=== PATIENT | female | born 1960 | race African-American/Black ===

== ENCOUNTER 2019-12-06 20:13 | Emergency (ER) | payer MEDICAID, OTHER ==
[~2019-12-06] VITALS: Ht 157.5 cm; Wt 130.6 kg
[2019-12-06 20:30] VITALS: BP 134/86
--- NOTE | 2019-12-06 20:31 | NUR ---
PT CAME TO ER BED 8 C/O BILATERAL EXTREMITY SWELLING. AAOX4. NO SOB. BREATHING EVENLY AND UNLABORED ON ROOM AIR. CONNECTED TO MONITOR.
--- NOTE | 2019-12-06 21:53 | NUR ---
CALLED [facility] FOR TRANSPORTATION. ETA [phone]. TRIP #[id number]
--- NOTE | 2019-12-06 22:08 | NUR ---
Report given to Tank KERNS at [place] for FRANCO.
--- NOTE | 2019-12-06 23:03 | NUR ---
[facility] ETA 15MIN
== END 2019-12-07 00:13 | disposition home or self-care (01) ==
LOC: ER 20:14
DX: M17.11 Unilateral primary osteoarthritis, right knee (principal); I10 Essential (primary) hypertension; Z88.5 Allergy status to narcotic agent
CPT/HCPCS: 73564-TC; 93971-TC

== ENCOUNTER 2020-05-16 05:56 | Emergency (ER) | payer MEDICAID ==
[~2020-05-16] VITALS: Ht 157.5 cm; Wt 108.0 kg
--- NOTE | 2020-05-16 05:57 | NUR ---
SEIZURE PRECAUTIONS IMPLEMENTED FOR SAFETY
--- NOTE | 2020-05-16 06:00 | NUR ---
PT SALENA 60 FROM [facility] FOR A WITNESSED SEIZURE WHICH LASTED FOR 2 MINUTES. NO ORAL TRAUMA.PT IS ON THE POST ICTAL PHASE BUT PT IS ABLE TO ANSWER QUESTIONS. PT AAOX4, RESPIRATIONS EVEN AND UNLABORED ON RA W/ NAD NOTED. PT CONNECTED TO THE FOIL CUTTER AND POX
--- NOTE | 2020-05-16 06:05 | NUR ---
BLOOD COLLECTED AND SENT TO LAB
[2020-05-16] MEDS ORDERED: LEVETIRACETAM (250 MG) 250 MG TABLET PO ONE ×2 (06:17→06:30)
--- NOTE | 2020-05-16 06:20 | NUR ---
PT TAKEN TO CT
--- NOTE | 2020-05-16 06:35 | NUR ---
PT BACK FROM CT
[2020-05-16 06:41] LABS: CALCIUM, SERUM 8.3 mg/dL (8.5-10.1); CREATININE 1.2 mg/dL (0.6-1.3); POTASSIUM 3.4 mmol/L (3.5-5.1)
[2020-05-16 06:56] LABS: BASOPHILS % (AUTO) 0.4 % (0.0-2.0); EOSINOPHILS % (AUTO) 1.8 % (0.0-6.0); HEMATOCRIT 42 % (33-45); HEMOGLOBIN 13.8 g/dL (11.5-14.8); LYMPHOCYTES # (AUTO) 2.5 /CMM (0.8-4.8); LYMPHOCYTES % (AUTO) 26.1 % (20.0-44.0); MEAN CORPUSCULAR HGB CONC 33 g/dl (31.0-36.0); MEAN CORPUSCULAR VOLUME 97 fL (82-100); MONOCYTES # (AUTO) 0.6 /CMM (0.1-1.30); MONOCYTES % (AUTO) 6.2 % (2.0-12.0); NEUTROPHILS # (AUTO) 6.2 /CMM (1.8-8.9); NEUTROPHILS % (AUTO) 65.5 % (43.0-81.0); PLATELET COUNT (AUTO) 186 /CMM (150-450); RED BLOOD CELL COUNT(AUTO) 4.31 MIL/uL (4.0-5.2); WHITE BLOOD COUNT (AUTO) 9.4 K/uL (4.3-11.0)
--- NOTE | 2020-05-16 07:30 | NUR ---
PATIENT A/OX2, ASKING "WHAT HAPPENED", REORIENTED, SHE HAD EPISODE OF SEIZURE
[2020-05-16] MEDS ORDERED: METOPROLOL TARTRATE INJ 5 MG/5 ML AMPUL ONE (07:54)
[2020-05-16] MEDS ORDERED: METOPROLOL TARTRATE INJ 5 MG/5 ML AMPUL IV ONE (08:00)
[2020-05-16] MEDS ORDERED: hydrALAZINE HCL IV 20 MG VIAL IV ONE (09:00)
--- NOTE | 2020-05-16 09:05 | NUR ---
WITH EPISODE OF HIGH BP, METOPROLOL GIVEN PER MD. RECHECKED SBP 150'S.
--- NOTE | 2020-05-16 09:06 | NUR ---
CALLED [facility] ETA 0930 MINS PER DIEGO.
[2020-05-16] MEDS ORDERED: hydrALAZINE HCL IV 20 MG VIAL ONE (09:08)
--- NOTE | 2020-05-16 09:37 | NUR ---
Patient discharged to home in stable condition. Written and verbal after care instructions given. Patient verbalizes understanding of instruction.IV removed. Catheter intact and site benign. Pressure and 4x4 applied to site. No bleeding noted. Acompanied by 3 EMT of private ambulance. A/Ox4. Addendum: 05/16/20 at 0940 by HUMERA DC TO SNF
[2020-05-16 09:38] VITALS: BP 151/89
== END 2020-05-16 09:39 ==
LOC: ER 05:57
DX: G40.909 Epilepsy, unspecified, not intractable, without status epilepticus (principal); I10 Essential (primary) hypertension; J45.909 Unspecified asthma, uncomplicated; F32.9 Major depressive disorder, single episode, unspecified; E03.9 Hypothyroidism, unspecified; Z88.5 Allergy status to narcotic agent
CPT/HCPCS: 36415; 70450; 80048; 85025; 96374; 96375; 99285; J0360; J3490

== ENCOUNTER 2020-05-23 21:08 | Emergency (ER) | payer MEDICAID ==
[~2020-05-23] VITALS: Ht 157.5 cm; Wt 108.9 kg
--- NOTE | 2020-05-23 21:30 | NUR ---
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 PER EMS LAST SZ WAS ABOUT 2029. PT W/ HX OF SEUIZURE AND RECEIVES KEPPRA. PT CURRENTLY ALERT AND AWAKE. RESPONSIVE TO QUESTIONS. REPORTED SOME WEAKNESS DUE TO SEIZURE EPISODE. PT WAS PLACED ON A MONITOR .
[2020-05-23 22:08] LABS: BASOPHILS # (AUTO) 0.2 /CMM (0.0-0.2); BASOPHILS % (AUTO) 1.4 % (0.0-2.0); EOSINOPHILS % (AUTO) 2.6 % (0.0-6.0); HEMATOCRIT 37 % (33-45); HEMOGLOBIN 12.4 g/dL (11.5-14.8); LYMPHOCYTES # (AUTO) 2.9 /CMM (0.8-4.8); MEAN CORPUSCULAR HGB CONC 33 g/dl (31.0-36.0); MEAN CORPUSCULAR VOLUME 98 fL (82-100); MONOCYTES # (AUTO) 0.8 /CMM (0.1-1.30); MONOCYTES % (AUTO) 7.7 % (2.0-12.0); NEUTROPHILS # (AUTO) 6.6 /CMM (1.8-8.9); NEUTROPHILS % (AUTO) 61.3 % (43.0-81.0); PLATELET COUNT (AUTO) 174 /CMM (150-450); RED BLOOD CELL COUNT(AUTO) 3.83 MIL/uL (4.0-5.2); WHITE BLOOD COUNT (AUTO) 10.8 K/uL (4.3-11.0)
[2020-05-23 22:15] LABS: CALCIUM, SERUM 8.2 mg/dL (8.5-10.1); CREATININE 1.3 mg/dL (0.6-1.3); POTASSIUM 3.4 mmol/L (3.5-5.1)
[2020-05-23] MEDS ORDERED: LEVETIRACETAM (500MG) 1,000 MG in IV NS 0.9% 100 ML IV ONE (23:30)
[2020-05-23] MEDS ORDERED: LEVETIRACETAM (500MG) 500 MG/5 ML VIAL IV ONE (23:52)
--- NOTE | 2020-05-24 00:06 | NUR ---
[facility] CALLED FOR TRANSPORT. ETA [phone]
[2020-05-24] MEDS ORDERED: LEVETIRACETAM (250 MG) 250 MG TABLET PO ONE ×2 (00:10→00:30)
--- NOTE | 2020-05-24 00:21 | NUR ---
SWALLOW EVAL DONE BY RN AT THE BED SIDE AND PT WAS MEDICATED . NO S/S OF CHOKING NOTED.
--- NOTE | 2020-05-24 03:27 | NUR ---
REPORT GIVEN TO [facility]. IV removed. Catheter intact and site benign. Pressure and 4x4 applied to site. No bleeding noted.
--- NOTE | 2020-05-24 03:32 | NUR ---
PT MEDICALLY STABLE FOR D/C. IV removed. Catheter intact and site benign. Pressure and 4x4 applied to site. No bleeding noted.Patient discharged to home in stable condition. Rx and Written and verbal after care instructions given. Patient verbalizes understanding of instruction. PT WAS PICKED UP [facility]IA [facility] IN STABLE CONDITION . ALL BELONGINGS PICKED UP BY THE AMBULANCE
[2020-05-24 03:47] VITALS: BP 136/99
== END 2020-05-24 03:32 | disposition home or self-care (01) ==
LOC: ER 21:08
DX: G40.909 Epilepsy, unspecified, not intractable, without status epilepticus (principal); I10 Essential (primary) hypertension; E78.5 Hyperlipidemia, unspecified; J45.909 Unspecified asthma, uncomplicated; E03.9 Hypothyroidism, unspecified; Z88.5 Allergy status to narcotic agent
CPT/HCPCS: 36415; 71045-TC; 80048-TC; 80177; 83880; 85025-TC; J1953; J7030

== ENCOUNTER 2020-07-07 23:34 | Emergency (ER) | payer MEDICAID ==
[~2020-07-07] VITALS: Ht 157.5 cm; Wt 108.9 kg
--- NOTE | 2020-07-07 23:40 | NUR ---
PT BIBRA60 FROM [facility]. PER REPORT PT FOUND BY ROOMATE "SHAKING/SEIZURE-LIKE ACTIVITY" @10PM. PT STATES SHE HAS A HX OF SEIZURE. PT AAOX4,RESPIRATIONS EVEN AND UNLABORED ON RA W/ NAD NOTED. PT CONNECTED TO THE RECEIVING ASSOCIATE AND POX. SEIZURE PRECAUTIONS IMPLEMNTED
--- NOTE | 2020-07-07 23:44 | NUR ---
EKG AT BEDSIDE
[2020-07-08 00:02] LABS: BASOPHILS % (AUTO) 0.2 % (0.0-2.0); EOSINOPHILS % (AUTO) 1.1 % (0.0-6.0); HEMATOCRIT 39 % (33-45); LYMPHOCYTES # (AUTO) 2.3 /CMM (0.8-4.8); LYMPHOCYTES % (AUTO) 22.3 % (20.0-44.0); MEAN CORPUSCULAR HGB CONC 33 g/dl (31.0-36.0); MEAN CORPUSCULAR VOLUME 97 fL (82-100); MONOCYTES # (AUTO) 0.7 /CMM (0.1-1.30); MONOCYTES % (AUTO) 7.1 % (2.0-12.0); NEUTROPHILS # (AUTO) 7.2 /CMM (1.8-8.9); NEUTROPHILS % (AUTO) 69.3 % (43.0-81.0); PLATELET COUNT (AUTO) 223 /CMM (150-450); RED BLOOD CELL COUNT(AUTO) 4.04 MIL/uL (4.0-5.2); WHITE BLOOD COUNT (AUTO) 10.4 K/uL (4.3-11.0)
--- NOTE | 2020-07-08 00:10 | NUR ---
NOTED ELEVATED BP 188/97. MADE AWARE
[2020-07-08 00:12] LABS: CALCIUM, SERUM 8.3 mg/dL (8.5-10.1); CARBON DIOXIDE 28 mmol/L (21-32); CHLORIDE 105 mmol/L (98-107); CREATININE 1.2 mg/dL (0.6-1.3); GLUCOSE 87 mg/dL (74-106); POTASSIUM 3.5 mmol/L (3.5-5.1); SODIUM SERUM 140 mmol/L (136-145); UREA NITROGEN, BLOOD 15 mg/dL (7-18)
[2020-07-08 00:17] LABS: ALANINE AMINOTRANSFERASE 27 U/L (12-78); ALBUMIN 3.3 g/dL (3.4-5.0); ALKALINE PHOSPHATASE 108 U/L (46-116); ASPARTATE AMINOTRANSFERASE 24 U/L (15-37); BILIRUBIN,DIRECT 0.1 mg/dL (0.0-0.2); BILIRUBIN,TOTAL 0.3 mg/dL (0.2-1.0)
[2020-07-08 00:19] LABS: ALCOHOL, BLOOD < 3 mg/dL (0-0)
--- NOTE | 2020-07-08 00:21 | NUR ---
URINE COLLECTED AND SENT TO LAB
[2020-07-08] MEDS ORDERED: CLONIDINE HCL 0.1 MG TABLET ONE (00:33)
[2020-07-08] MEDS: CLONIDINE HCL 0.1 MG TABLET PO ONE (00:39)
--- NOTE | 2020-07-08 00:40 | NUR ---
PT GIVEN ORANGE JUICE AND FOOD.
--- NOTE | 2020-07-08 01:27 | NUR ---
ETA 0700 [facility]
[2020-07-08 01:32] LABS: APPEARANCE,URINE CLEAR (CLEAR); BILIRUBIN,URINE NEGATIVE (NEGATIVE); BLOOD, URINE NEGATIVE Ery/uL (NEGATIVE); COLOR,URINE YELLOW (YELLOW); KETONES,URINE NEGATIVE (NEGATIVE); LEUKOCYTE ESTERASE ,URINE NEGATIVE (NEGATIVE); NITRITE, URINE NEGATIVE (NEGATIVE); PROTEIN,URINE NEGATIVE (NEGATIVE); UGLUCOSE NEGATIVE (NEGATIVE); UROBILINOGEN,URINE 0.2 EU/dL (0.2)
--- NOTE | 2020-07-08 04:28 | NUR ---
PT RESTING COMFORTABLY IN BED. VSS. NO ACUTE DISTRESS NOTED. WILL CONTINUE TO MONITOR ACCORDINGLY
--- NOTE | 2020-07-08 06:31 | NUR ---
REPORT GIVEN TO GRZEGORZ FROM [facility]
[2020-07-08 07:24] VITALS: BP 115/68
--- NOTE | 2020-07-08 07:24 | NUR ---
REPORT GIVEN TO EMS, YOGESH. PT STABLE TO BE DC'ED BACK TO THE FACILITY
== END 2020-07-08 07:25 ==
LOC: ER 23:35
DX: R56.9 Unspecified convulsions (principal); I10 Essential (primary) hypertension; J45.909 Unspecified asthma, uncomplicated; F32.9 Major depressive disorder, single episode, unspecified; E03.9 Hypothyroidism, unspecified; E78.5 Hyperlipidemia, unspecified; Z88.5 Allergy status to narcotic agent
CPT/HCPCS: 36415; 71045-TC; 80048-TC; 80076-TC; 80305; 81000-TC; 82962-TC; 85025-TC; G0480

== ENCOUNTER 2020-08-16 00:21 | Emergency (ER) | payer MEDICAID ==
[~2020-08-16] VITALS: Ht 165.1 cm; Wt 99.8 kg
--- NOTE | 2020-08-16 00:32 | NUR ---
PT [id number] FROM [facility] C/O L LEG PAIN S/P GLF. -TRAUMA NOTED. PT PLACED IN BED 4 ON MONITOR AND PULSE OX. MD AT BEDSIDE FOR EVAL. NO ACUTE DISTRESS NOTED.
--- NOTE | 2020-08-16 00:50 | NUR ---
RADIOLOGY AT BEDSIDE FOR XRAY
[2020-08-16] MEDS ORDERED: KETOROLAC TROMETHAMINE INJ 60 MG/2 ML VIAL IM ONE ×2 (00:58→01:00)
--- NOTE | 2020-08-16 01:36 | NUR ---
REPORT GIVEN TO JOSE GUADALUPE AT [facility]
--- NOTE | 2020-08-16 01:51 | NUR ---
MARISSA TURF FARM WORKER [id number] TRIP [id number] TRIP#
--- NOTE | 2020-08-16 05:00 | NUR ---
Patient is resting comfortably in bed with eyes closed. Easily aroused. Pt denies pain at this time
--- NOTE | 2020-08-16 06:56 | NUR ---
report given to ems for dc
--- NOTE | 2020-08-16 06:57 | NUR ---
Patient discharged to home in stable condition. Written and verbal after care instructions given. Patient verbalizes understanding of instruction.
[2020-08-16 07:07] VITALS: BP 146/88
== END 2020-08-16 07:08 ==
LOC: ER 00:21
DX: S80.12XA Contusion of left lower leg, initial encounter (principal); E66.01 Morbid (severe) obesity due to excess calories; I10 Essential (primary) hypertension; J45.909 Unspecified asthma, uncomplicated; F32.9 Major depressive disorder, single episode, unspecified; E03.9 Hypothyroidism, unspecified; E78.5 Hyperlipidemia, unspecified; Z88.5 Allergy status to narcotic agent; Z68.36 Body mass index [BMI] 36.0-36.9, adult; W01.0XXA Fall on same level from slipping, tripping and stumbling without subsequent striking against object, initial encounter; Y93.01 Activity, walking, marching and hiking; Y92.89 Other specified places as the place of occurrence of the external cause; Y99.8 Other external cause status
CPT/HCPCS: 72170; 73552; 73590; 96372; 99284; J1885

== ENCOUNTER 2020-08-21 05:00 | Emergency (ER) | payer MEDICAID ==
[~2020-08-21] VITALS: Ht 165.1 cm; Wt 133.6 kg
--- NOTE | 2020-08-21 05:10 | NUR ---
PT BIBRA C/O MIDSTERNAL CHEST PAIN W/ UNKNOWN ONSET TIME AND GENERALIZED WEAKNESS. +NAUSEA, PT ABLE TO FOLLOW COMMANDS, AAOX3, VSS, RESPIRATIONS EVEN AND UNLABORED ON RA W/ NAD NOTED. PT CONNECTED TO THE AIRLINE OPERATIONS AGENT AND POX
--- NOTE | 2020-08-21 05:28 | NUR ---
BLOOD COLLECTED AND SENT TO LAB
[2020-08-21] MEDS ORDERED: IV NS 0.9% 1,000 ML BAG IV ONE (05:30)
[2020-08-21 05:31] LABS: BASOPHILS # (AUTO) 0.1 /CMM (0.0-0.2); BASOPHILS % (AUTO) 1.1 % (0.0-2.0); EOSINOPHILS % (AUTO) 3.4 % (0.0-6.0); HEMATOCRIT 37 % (33-45); HEMOGLOBIN 12.4 g/dL (11.5-14.8); LYMPHOCYTES % (AUTO) 30.3 % (20.0-44.0); MEAN CORPUSCULAR HGB CONC 33 g/dl (31.0-36.0); MEAN CORPUSCULAR VOLUME 97 fL (82-100); MONOCYTES # (AUTO) 0.8 /CMM (0.1-1.30); MONOCYTES % (AUTO) 7.9 % (2.0-12.0); NEUTROPHILS # (AUTO) 5.7 /CMM (1.8-8.9); NEUTROPHILS % (AUTO) 57.3 % (43.0-81.0); PLATELET COUNT (AUTO) 155 /CMM (150-450); RED BLOOD CELL COUNT(AUTO) 3.85 MIL/uL (4.0-5.2); WHITE BLOOD COUNT (AUTO) 9.9 K/uL (4.3-11.0)
[2020-08-21 05:40] LABS: CALCIUM, SERUM 8.1 mg/dL (8.5-10.1); CARBON DIOXIDE 31 mmol/L (21-32); CHLORIDE 104 mmol/L (98-107); GLUCOSE 79 mg/dL (74-106); POTASSIUM 3.3 mmol/L (3.5-5.1); SODIUM SERUM 143 mmol/L (136-145); UREA NITROGEN, BLOOD 15 mg/dL (7-18)
[2020-08-21 05:48] LABS: ALANINE AMINOTRANSFERASE 28 U/L (12-78); ALBUMIN 2.8 g/dL (3.4-5.0); ALKALINE PHOSPHATASE 101 U/L (46-116); ASPARTATE AMINOTRANSFERASE 22 U/L (15-37); BILIRUBIN,DIRECT 0.1 mg/dL (0.0-0.2); BILIRUBIN,TOTAL 0.3 mg/dL (0.2-1.0); TOTAL PROTEIN, SERUM 6.9 g/dL (6.4-8.2)
--- NOTE | 2020-08-21 08:14 | NUR ---
CALLED TRANSPORT ETA 0845 [facility].
--- NOTE | 2020-08-21 08:46 | NUR ---
TRIED TO CONTACT [facility], NO ANSWER.
--- NOTE | 2020-08-21 09:00 | NUR ---
IV removed. Catheter intact and site benign. Pressure and 4x4 applied to site. No bleeding noted.
--- NOTE | 2020-08-21 09:06 | NUR ---
Patient discharged RA in stable condition. Written and verbal after care instructions given. Patient verbalizes understanding of instruction. Patient will be brought to [facility] the [place]
[2020-08-21 09:07] VITALS: BP 170/76
== END 2020-08-21 09:08 ==
LOC: ER 05:02
DX: R53.1 Weakness (principal); I10 Essential (primary) hypertension; J45.909 Unspecified asthma, uncomplicated; F32.9 Major depressive disorder, single episode, unspecified; E03.9 Hypothyroidism, unspecified; E78.5 Hyperlipidemia, unspecified; Z88.5 Allergy status to narcotic agent
CPT/HCPCS: 36415; 71045; 80048; 80076; 84484; 85025; 93005; 96360; 99285; J7030

== ENCOUNTER 2020-09-26 10:51 | Emergency (ER) | payer MEDICAID ==
[~2020-09-26] VITALS: Ht 157.5 cm; Wt 90.7 kg
[2020-09-26 13:09] LABS: BILIRUBIN,URINE NEGATIVE (NEGATIVE); BLOOD, URINE NEGATIVE Ery/uL (NEGATIVE); COLOR,URINE YELLOW (YELLOW); LEUKOCYTE ESTERASE ,URINE NEGATIVE (NEGATIVE); NITRITE, URINE NEGATIVE (NEGATIVE); PH,URINE 6.5 (5.0-8.0); PROTEIN,URINE TRACE mg/dl (NEGATIVE); UGLUCOSE NEGATIVE (NEGATIVE); UROBILINOGEN,URINE 0.2 EU/dL (0.2)
[2020-09-26 13:20] LABS: BASOPHILS % (AUTO) 0.3 % (0.0-2.0); EOSINOPHILS % (AUTO) 0.1 % (0.0-6.0); HEMATOCRIT 42 % (33-45); HEMOGLOBIN 13.6 g/dL (11.5-14.8); LYMPHOCYTES # (AUTO) 2.3 /CMM (0.8-4.8); LYMPHOCYTES % (AUTO) 17.9 % (20.0-44.0); MEAN CORPUSCULAR HGB CONC 33 g/dl (31.0-36.0); MEAN CORPUSCULAR VOLUME 99 fL (82-100); MONOCYTES % (AUTO) 7.4 % (2.0-12.0); NEUTROPHILS # (AUTO) 9.6 /CMM (1.8-8.9); NEUTROPHILS % (AUTO) 74.3 % (43.0-81.0); PLATELET COUNT (AUTO) 166 /CMM (150-450); RED BLOOD CELL COUNT(AUTO) 4.21 MIL/uL (4.0-5.2); WHITE BLOOD COUNT (AUTO) 12.9 K/uL (4.3-11.0)
[2020-09-26 13:21] LABS: CALCIUM, SERUM 8.4 mg/dL (8.5-10.1); CREATININE 0.9 mg/dL (0.6-1.3); POTASSIUM 3.6 mmol/L (3.5-5.1)
[2020-09-26 13:24] LABS: BACTERIA,URINE Few /HPF (None Seen); RBC,URINE 0-2 /HPF (0-2); SQUAMOUS EPITHELIAL CELL,UR Moderate /HPF (None Seen); WBC,URINE 0-2 /HPF (0-3)
[2020-09-26 13:28] LABS: ALBUMIN 3.3 g/dL (3.4-5.0); BILIRUBIN,DIRECT 0.1 mg/dL (0.0-0.2); BILIRUBIN,TOTAL 0.3 mg/dL (0.2-1.0); TOTAL PROTEIN, SERUM 7.5 g/dL (6.4-8.2)
[2020-09-26] MEDS ORDERED: ONDANSETRON HCL/PF - ER 4 MG/2 ML VIAL IV ONE (14:00)
[2020-09-26] MEDS ORDERED: LOPERAMIDE HCL (2 MG CAP) 2 MG CAPSULE PO ONE (14:00)
[2020-09-26 14:36] LABS: PHENYTOIN (DILANTIN) < 0.5 ug/ml (10.0-20.0)
[2020-09-26] MEDS ORDERED: ONDANSETRON HCL/PF 4 MG/2 ML VIAL ONE (14:39)
[2020-09-26] MEDS ORDERED: LOPERAMIDE HCL (2 MG CAP) 2 MG CAPSULE ONE (14:39)
[2020-09-26 14:48] LABS: LYMPHOCYTES % (MANUAL) 18 % (16-48); MONOCYTES % (MANUAL) 4 % (0-11.0); NEUTROPHILS % (MANUAL) 78 (42-76)
--- NOTE | 2020-09-26 14:59 | NUR ---
COVID SWAB DONE
--- NOTE | 2020-09-26 15:34 | NUR ---
patient came back from ct
--- NOTE | 2020-09-26 15:51 | NUR ---
received a call from the lab regarding covid 19 result "negative", informed MD and aware.
--- NOTE | 2020-09-26 17:31 | NUR ---
CALLED TRANSPORT AM 1814 [address]
[2020-09-26 19:12] VITALS: BP 150/77
--- NOTE | 2020-09-26 19:12 | NUR ---
Patient discharged to SNF in stable condition. Written and verbal after care instructions given. Patient verbalizes understanding of instruction.IV removed. Catheter intact and site benign. Pressure and 4x4 applied to site. No bleeding noted.
== END 2020-09-26 19:12 ==
LOC: ER 10:54
DX: R10.84 Generalized abdominal pain (principal); R11.2 Nausea with vomiting, unspecified; R19.7 Diarrhea, unspecified; Z20.828 Contact with and (suspected) exposure to other viral communicable diseases; R91.8 Other nonspecific abnormal finding of lung field; K57.30 Diverticulosis of large intestine without perforation or abscess without bleeding; R16.0 Hepatomegaly, not elsewhere classified; Z88.6 Allergy status to analgesic agent; Z88.5 Allergy status to narcotic agent; E03.9 Hypothyroidism, unspecified; J45.909 Unspecified asthma, uncomplicated; G40.909 Epilepsy, unspecified, not intractable, without status epilepticus; I10 Essential (primary) hypertension; I25.10 Atherosclerotic heart disease of native coronary artery without angina pectoris; E78.5 Hyperlipidemia, unspecified
CPT/HCPCS: 36415; 74176; 80048; 80076; 80156; 80185; 81001; 83690; 85007; 85025; 87426; 96374; 99285; C9803; J2405

== ENCOUNTER 2020-09-29 19:12 | Emergency (ER) | payer MEDICAID ==
[~2020-09-29] VITALS: Ht 157.5 cm; Wt 122.5 kg
--- NOTE | 2020-09-29 20:34 | NUR ---
PT AAOX3. BIBPA FROM [facility] C/O BODY ACHES, FEVER, COUGH/CONGESTION. PT PLACED ON CARDIAC MONIOTOR AND PUILSE OX. VSS.
[2020-09-29 23:35] LABS: BASOPHILS % (AUTO) 0.2 % (0.0-2.0); EOSINOPHILS % (AUTO) 0.3 % (0.0-6.0); HEMATOCRIT 40 % (33-45); HEMOGLOBIN 13.2 g/dL (11.5-14.8); LYMPHOCYTES # (AUTO) 2.7 /CMM (0.8-4.8); LYMPHOCYTES % (AUTO) 19.9 % (20.0-44.0); MEAN CORPUSCULAR HGB CONC 33 g/dl (31.0-36.0); MEAN CORPUSCULAR VOLUME 99 fL (82-100); MONOCYTES % (AUTO) 7.6 % (2.0-12.0); NEUTROPHILS # (AUTO) 9.8 /CMM (1.8-8.9); PLATELET COUNT (AUTO) 170 /CMM (150-450); RED BLOOD CELL COUNT(AUTO) 3.98 MIL/uL (4.0-5.2); WHITE BLOOD COUNT (AUTO) 13.7 K/uL (4.3-11.0)
[2020-09-29 23:45] LABS: CALCIUM, SERUM 8.3 mg/dL (8.5-10.1); CARBON DIOXIDE 31 mmol/L (21-32); CHLORIDE 104 mmol/L (98-107); CREATININE 1.5 mg/dL (0.6-1.3); GLUCOSE 105 mg/dL (74-106); POTASSIUM 3.5 mmol/L (3.5-5.1); SODIUM SERUM 142 mmol/L (136-145); UREA NITROGEN, BLOOD 21 mg/dL (7-18)
[2020-09-29 23:51] LABS: ALANINE AMINOTRANSFERASE 29 U/L (12-78); ALBUMIN 3.3 g/dL (3.4-5.0); ALKALINE PHOSPHATASE 137 U/L (46-116); ASPARTATE AMINOTRANSFERASE 22 U/L (15-37); BILIRUBIN,DIRECT 0.1 mg/dL (0.0-0.2); BILIRUBIN,TOTAL 0.2 mg/dL (0.2-1.0); TOTAL PROTEIN, SERUM 7.7 g/dL (6.4-8.2)
--- NOTE | 2020-09-30 00:02 | NUR ---
LAB CALLED REGARDING NEGATIVE COVID RESULT.
[2020-09-30] MEDS ORDERED: CLONIDINE HCL 0.1 MG TABLET ONE ×2 (00:09→01:39)
--- NOTE | 2020-09-30 00:12 | NUR ---
called [facility], report given to herberth taylor
--- NOTE | 2020-09-30 00:23 | NUR ---
[facility] called for transport. ETA 0300 Addendum: 09/30/20 at 0024 by CBATACLAN [facility] called for transport. ETA 0300. trip#[id number]
[2020-09-30] MEDS ORDERED: CLONIDINE HCL 0.1 MG TABLET PO ONE ×2 (00:30→02:00)
--- NOTE | 2020-09-30 03:23 | NUR ---
REPORT GIVEN TO [facility], PT TRANSFERED BACK TO FACILITY/.
[2020-09-30 03:30] VITALS: BP 143/73
== END 2020-09-30 03:27 ==
LOC: ER 19:16
DX: B34.9 Viral infection, unspecified (principal); I16.0 Hypertensive urgency; R50.9 Fever, unspecified; R05 Cough; Z20.828 Contact with and (suspected) exposure to other viral communicable diseases; R94.31 Abnormal electrocardiogram [ECG] [EKG]; Z88.6 Allergy status to analgesic agent; Z88.5 Allergy status to narcotic agent; E03.9 Hypothyroidism, unspecified; J45.909 Unspecified asthma, uncomplicated; E78.5 Hyperlipidemia, unspecified; F32.9 Major depressive disorder, single episode, unspecified; F03.90 Unspecified dementia, unspecified severity, without behavioral disturbance, psychotic disturbance, mood disturbance, and anxiety; Z86.69 Personal history of other diseases of the nervous system and sense organs
CPT/HCPCS: 36415; 71045; 80048; 80076; 83605; 83880; 84484; 85025; 87040 ×2; 87426; 93005; 99285; C9803 ×2; U0003

== ENCOUNTER 2021-07-01 17:17 | Inpatient (IN) | payer MEDICAID ==
[~2021-07-01] VITALS: Ht 172.7 cm; Wt 126.6 kg
--- NOTE | 2021-07-01 17:17 | NUR ---
PT BIBRA 60 FROM [facility] FOR NOTED AMS AND POSSIBLE SEIZURE. 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 PT IS AAOX1, NOT IN RESPIRATORY DISTRESS, HOOKED TO FERRY TERMINAL SUPERVISOR, KEPT RESTED AND COMFORTABLE. WILL CONTINUE TO MONITOR.
--- NOTE | 2021-07-01 17:25 | NUR ---
IV LINE ESTABLISHED BLOOD DRAWN AND SENT TO LAB.
[2021-07-01] MEDS ORDERED: IV NS 0.9% 500 ML BAG IV ONE (17:30)
[2021-07-01] MEDS ORDERED: LEVO50TA8 PO (17:54)
[2021-07-01] MEDS ORDERED: GABA-536 PO (17:54)
[2021-07-01] MEDS ORDERED: ATOR10TA PO (17:54)
[2021-07-01] MEDS ORDERED: ARIP5TAB10 PO (17:54)
[2021-07-01] MEDS ORDERED: AMLO5TAB4 PO (17:54)
[2021-07-01] MEDS ORDERED: POLY17PO4 PO (17:54)
[2021-07-01] MEDS ORDERED: HYDR-4077 PO (17:54)
[2021-07-01] MEDS ORDERED: ESOM40CA PO (17:54)
[2021-07-01] MEDS ORDERED: LEVE1000 PO (17:54)
[2021-07-01] MEDS ORDERED: METO50TA16 PO (17:54)
[2021-07-01] MEDS ORDERED: DULO20CA PO (17:54)
[2021-07-01] MEDS ORDERED: FURO-144 PO (17:54)
[2021-07-01] MEDS ORDERED: IBUP-1957 PO (17:54)
[2021-07-01] MEDS ORDERED: SOLI5TAB2 PO (17:54)
[2021-07-01] MEDS ORDERED: DIVA-78 PO (17:54)
[2021-07-01] MEDS ORDERED: BACL20TA PO (17:54)
[2021-07-01] MEDS ORDERED: ESCI10TA PO (17:54)
[2021-07-01] MEDS ORDERED: TRAZ-257 PO (17:54)
[2021-07-01] MEDS ORDERED: CARB200T PO (17:54)
--- NOTE | 2021-07-01 18:11 | NUR ---
CHASE DAVID [phone]
[2021-07-01 18:16] LABS: ALANINE AMINOTRANSFERASE 22 U/L (12-78); ALBUMIN 3.6 g/dL (3.4-5.0); ALCOHOL, BLOOD < 3 mg/dL (0-0); ALKALINE PHOSPHATASE 119 U/L (46-116); ASPARTATE AMINOTRANSFERASE 22 U/L (15-37); BILIRUBIN,DIRECT 0.1 mg/dL (0.0-0.2); BILIRUBIN,TOTAL 0.2 mg/dL (0.2-1.0); CALCIUM, SERUM 8.1 mg/dL (8.5-10.1); CARBON DIOXIDE 29 mmol/L (21-32); CHLORIDE 104 mmol/L (98-107); CREATININE 0.9 mg/dL (0.6-1.3); GLUCOSE 111 mg/dL (74-106); POTASSIUM 3.6 mmol/L (3.5-5.1); SODIUM SERUM 142 mmol/L (136-145); TOTAL PROTEIN, SERUM 7.8 g/dL (6.4-8.2); UREA NITROGEN, BLOOD 16 mg/dL (7-18)
[2021-07-01 18:34] LABS: BILIRUBIN,URINE Negative (NEGATIVE); COLOR,URINE YELLOW (YELLOW); LEUKOCYTE ESTERASE ,URINE Negative (NEGATIVE); NITRITE, URINE Negative (NEGATIVE); PH,URINE 6.5 (5.0-8.0); PROTEIN,URINE Negative (NEGATIVE); UGLUCOSE Negative (NEGATIVE); UROBILINOGEN,URINE 0.2 EU/dL (0.2)
[2021-07-01 18:51] LABS: BASOPHILS # (AUTO) 0.1 K/uL (0.0-0.2); RED BLOOD CELL COUNT(AUTO) 3.88 MIL/uL (4.0-5.2)
[2021-07-01 18:54] LABS: EOSINOPHILS % (AUTO) 0.2 % (0.0-6.0); HEMOGLOBIN 12.6 g/dL (11.5-14.8); MEAN CORPUSCULAR HGB CONC 33 g/dl (31.0-36.0); NEUTROPHILS # (AUTO) 8.8 K/uL (1.8-8.9)
[2021-07-01 18:57] LABS: HEMATOCRIT 38 % (33-45); LYMPHOCYTES % (AUTO) 24.1 % (20.0-44.0); MEAN CORPUSCULAR VOLUME 98 fL (82-100); MONOCYTES # (AUTO) 0.5 K/uL (0.1-1.30); MONOCYTES % (AUTO) 4.4 % (2.0-12.0); NEUTROPHILS % (AUTO) 70.3 % (43.0-81.0); WHITE BLOOD COUNT (AUTO) 12.5 K/uL (4.3-11.0)
[2021-07-01] MEDS ORDERED: ONDANSETRON HCL/PF 4 MG/2 ML VIAL IV ONE (20:00)
[2021-07-01] MEDS ORDERED: LEVETIRACETAM (500MG) 1,000 MG in IV NS 0.9% 100 ML IV SCH (20:00)
[2021-07-01] MEDS ORDERED: LEVETIRACETAM (500MG) 500 MG in IV NS 0.9% 100 ML IV SCH (20:00)
[2021-07-01 20:07] LABS: PLATELET COUNT (AUTO) 157 K/uL (150-450)
[2021-07-01 20:11] LABS: LYMPHOCYTES % (MANUAL) 26 % (16-48); MONOCYTES % (MANUAL) 4 % (0-11.0); NEUTROPHILS % (MANUAL) 70 (42-76)
[2021-07-01] MEDS ORDERED: ONDANSETRON HCL/PF 4 MG/2 ML VIAL ONE (20:16)
[2021-07-01] MEDS ORDERED: LEVETIRACETAM (500MG) 500 MG/5 ML VIAL IV ONE (20:16)
[2021-07-01] MEDS ORDERED: hydrALAZINE HCL IV 20 MG VIAL IV ONE (20:30)
[2021-07-01] MEDS ORDERED: LORAZEPAM INJ 2 MG/ML VIAL IV ONE (21:00)
[2021-07-01] MEDS ORDERED: LORAZEPAM INJ 2 MG/ML VIAL ONE (21:01)
[2021-07-01] MEDS ORDERED: hydrALAZINE HCL IV 20 MG VIAL ONE (21:01)
--- NOTE | 2021-07-01 21:09 | NUR ---
CALLED [facility] PAGED DR GALLARDO
--- NOTE | 2021-07-01 21:16 | NUR ---
CALLED [facility], SENT TELEMED [facility] REQUEST FOR NEURO CONSULT AWAITING CALL BACK
[2021-07-01] MEDS ORDERED: IV NS 0.9% 250 ML IV ONE (21:21)
[2021-07-01] MEDS ORDERED: IOHEXOL-350 100 ML VIAL IV ONE (21:21)
--- NOTE | 2021-07-01 21:32 | NUR ---
DR GRIFFITHS SPEAKING WITH NEURO
--- NOTE | 2021-07-01 21:45 | NUR ---
ASSISTED NEURO WITH PT ASSESSMENT
--- NOTE | 2021-07-01 21:46 | NUR ---
CALLED [facility], PAGED DR GALLARDO
--- NOTE | 2021-07-01 21:47 | NUR ---
Vicki kahn in [facility] - 07/01/21 at [address]
--- NOTE | 2021-07-01 21:47 | NUR ---
CALLED [facility], PAGED DR GALLARDO
--- NOTE | 2021-07-01 21:54 | NUR ---
CALLED [facility], SPOKE TO ALEX, STATES NO CONTINUOS EEG OR TELE BEDS AVAILABLE TONIGHT.
--- NOTE | 2021-07-01 21:59 | NUR ---
MRSA SWAB COLLECTED AND SENT TO LAB. PATIENT'S BELONGINGS LIST DONE.
[2021-07-01] MEDS ORDERED: FUROSEMIDE 20 MG/2 ML VIAL IV ONE (22:00)
[2021-07-01] MEDS ORDERED: FUROSEMIDE 20 MG/2 ML VIAL ONE (22:03)
--- NOTE | 2021-07-01 22:18 | NUR ---
CALLED [facility] Addendum: 07/01/21 at 2227 by YUDY SPOKE TO KRISS
--- NOTE | 2021-07-01 22:19 | NUR ---
COVID SWAB SENT TO LAB
[2021-07-01 22:21] LABS: ABG BASE EXCESS 2.3 mmol/L; ABG OXYGEN SATURATION 95.4 % (92.0-98.5); ABG PH 7.447 (7.350-7.450); COHb 0.4 % (0.5-1.5); MetHb 0.3 % (0.0-1.5); O2Hb 94.7 % (94.0-97.0); SITE, ABG Right Radial; VENT MODE, BG RA
--- NOTE | 2021-07-01 22:25 | NUR ---
FAXED FACESHEET AND CLINICALS TO [facility]
--- NOTE | 2021-07-01 22:27 | NUR ---
SPOKE WITH SHEREEN AYALA FROM TRANSFER CENTER FOR CLINICAL UPDATES FOR TRANSFER
--- NOTE | 2021-07-01 22:28 | NUR ---
CALLED [facility], STATES WILL CALL BACK TO TAKE REQUEST INFO
--- NOTE | 2021-07-01 22:29 | NUR ---
CALLED [facility], SPOKE TO AVEL RAMIREZ, FACILITY DOES NOT HAVE CONTINUOUS EEG SERVICE
--- NOTE | 2021-07-01 22:34 | NUR ---
CALLED [facility], SPOKE TO CASS, STATES AT [facility]
--- NOTE | 2021-07-01 22:45 | NUR ---
LOLA CALLED BACK AND SPOKE WITH NOEL. THEY ARE AT [facility].
--- NOTE | 2021-07-01 23:50 | NUR ---
SPEAKING WITH DR MAK FROM [facility]
--- NOTE | 2021-07-02 00:08 | NUR ---
SPOKE WITH SEHREEN AYALA FROM [facility]. NO BEDS AVAILABLE.
[2021-07-02] MEDS ORDERED: Z GUARD REMEDY 2 OZ OINT TP PRN (00:30)
[2021-07-02] MEDS ORDERED: ONDANSETRON HCL/PF 4 MG/2 ML VIAL IVP PRN (00:30)
[2021-07-02] MEDS ORDERED: LORAZEPAM INJ 2 MG/ML VIAL IV PRN (00:30)
[2021-07-02] MEDS ORDERED: MAG HYDROX/AL HYDROX/SIMETH 30 ML UDC PO PRN (00:30)
[2021-07-02] MEDS ORDERED: IV D5/0.45 NACL 1,000 ML IV PRN (00:30)
[2021-07-02] MEDS ORDERED: MAGNESIUM HYDROXIDE 30 ML UDC PO PRN (00:30)
--- NOTE | 2021-07-02 01:16 | NUR ---
CALLED [facility] TO HAVE ORDERS VERIFIED
[2021-07-02] MEDS: ENOXAPARIN SODIUM 40 MG/0.4 ML DISP.SYRIN SQ SCH ×2 (01:30→21:33)
[2021-07-02] MEDS ORDERED: ATORVASTATIN 10 MG TABLET ONE (01:45)
[2021-07-02] MEDS ORDERED: ENOXAPARIN SODIUM 40 MG/0.4 ML DISP.SYRIN SQ ONE (01:45)
[2021-07-02] MEDS ORDERED: ONDANSETRON HCL/PF 4 MG/2 ML VIAL ONE (01:58)
--- NOTE | 2021-07-02 02:15 | NUR ---
Patient is resting comfortably in bed with eyes closed. Easily aroused. VSS
--- NOTE | 2021-07-02 03:45 | NUR ---
PT SLEEPING, ATTACHED TO MONITOR VSS
--- NOTE | 2021-07-02 04:57 | NUR ---
PT ATTACHED TO MONITOR. VSS
--- NOTE | 2021-07-02 07:23 | NUR ---
ASSESSED PT ON BED ASLEEP EASILY AROUSABLE, NOT IN RESPIRATORY DISTRESS, V/S STABLE, KEPT RESTED AND COMFORTABLE. WILL CONTINUE TO MONITOR.
[2021-07-02] MEDS ORDERED: LEVOTHYROXINE SODIUM 25 MCG TABLET ONE (07:37)
[2021-07-02] MEDS ORDERED: PANTOPRAZOLE 40 MG TABLET.DR PO ONE (07:37)
[2021-07-02] MEDS: LEVOTHYROXINE SODIUM 25 MCG TABLET PO SCH (07:39)
[2021-07-02] MEDS: PANTOPRAZOLE 40 MG TABLET.DR PO SCH (07:39)
[2021-07-02] MEDS ORDERED: ARIPIPRAZOLE 2 MG TABLET ONE (09:09)
[2021-07-02] MEDS ORDERED: AMLODIPINE BESYLATE 5 MG TABLET ONE (09:10)
[2021-07-02] MEDS ORDERED: CARBAMAZEPINE 200 MG TABLET ONE ×2 (09:10→13:17)
[2021-07-02] MEDS ORDERED: DIVALPROEX SODIUM 250 MG TABLET.DR PO ONE (09:10)
[2021-07-02] MEDS ORDERED: LEVETIRACETAM (250 MG) 250 MG TABLET PO ONE (09:10)
[2021-07-02] MEDS ORDERED: METOPROLOL TARTRATE 50 MG TABLET ONE (09:11)
[2021-07-02] MEDS ORDERED: GABAPENTIN 300 MG CAPSULE ONE ×2 (09:11→13:17)
[2021-07-02] MEDS: DIVALPROEX SODIUM 250 MG TABLET.DR PO SCH ×2 (09:12→21:31)
[2021-07-02] MEDS: AMLODIPINE BESYLATE 5 MG TABLET PO SCH (09:12)
[2021-07-02] MEDS: GABAPENTIN 300 MG CAPSULE PO SCH ×3 (09:12→17:19)
[2021-07-02] MEDS: LEVETIRACETAM (250 MG) 250 MG TABLET PO SCH ×2 (09:12→17:19)
[2021-07-02] MEDS: ARIPIPRAZOLE 5 MG TABLET PO SCH (09:12)
[2021-07-02] MEDS: METOPROLOL TARTRATE 50 MG TABLET PO SCH ×2 (09:12→21:35)
[2021-07-02] MEDS: CARBAMAZEPINE 200 MG TABLET PO SCH ×3 (09:13→17:19)
[2021-07-02] MEDS: hydrALAZINE HCL 50 MG TABLET PO SCH ×3 (09:32→17:19)
--- NOTE | 2021-07-02 10:57 | NUR ---
CHASE SON CALLED FROM [phone].
--- NOTE | 2021-07-02 11:35 | NUR ---
AT BEDSIDE FOR EVAL
--- NOTE | 2021-07-02 15:12 | NUR ---
CALLED [facility] FOR REPORT NO RN AVAILABLE.
--- NOTE | 2021-07-02 15:27 | NUR ---
REPORT GIVEN TO SYLVIA FOR FRANCO.
--- NOTE | 2021-07-02 16:20 | NUR ---
RN NOTE RECEIVED PATIENT FROM ER, PATIENT TRANSFERRED FROM [facility] TO [facility] TOTAL ASSIST, BODY CHECK DONE SKIN INTACT, IV ON RIGHT AC GAUGE 18 PATENT INFUSING WELL, PATIENT ON TELE MONITOR, PATIENT ALERT AND ORIENTED X2 WITH FORGETFULNESS, PATIENT VACCINATED WITH COVID VACCINE 2 DOSES BUT DOES NOT RECAL WHEN AND WHAT VACCINE, HAD PNA AND FLU VACCINE BUT FORGOT WHEN IT WAS ADMINISTERED. PATIENT ON HERNANDEZ CATHETER DRAINING WELL, SEIZURE PRECAUTION, WILL CONTINUE TO MONITOR.
--- NOTE | 2021-07-02 19:01 | NUR ---
RN NOTES NO SIGNIFICANT CHANGES AT THIS TIME. PATIENT ALERT AND ORIENTED X3. PLEASANT. PATIENT FORGETFUL. BREATHING EVEN AND UNLABORED, NO SOB NOTED. CURRENTLY ON ROOM AIR. NO COMPLAINTS OF DISCOMFORT AT THIS TIME. SKIN IS WARM AND DRY TO TOUCH. INTACT. PATIENT WITH IV ACCESS ON RIGHT AC #18G. ON TELE MONITORING WITH SINUS RHYTHM. FALL RISK PRECAUTION OBSERVED. SEIZURE PRECAUTION OBSERVED. CALL LIGHT PLACED WITHIN REACH.
--- NOTE | 2021-07-02 19:30 | NUR ---
RN OPENING NOTE PATIENT IN BED, SLEEPING, EASILY AROUSED. PATIENT IS A/O X 1-2. ABLE TO MAKE NEEDS KNOWN. BREATHING EVEN AND UNLABORED, TOLERATING ROOM AIR. PATIENT HAS A RAC 18 G, SALINE LOCKED. PATIENT NOT IN ANY APPARENT DISTRESS. SAFETY MEASURES IN PLACE: BED LOCKED AND IN LOWEST POSITION, CALL LIGHT WITHIN REACH, SIDE RAILS UP. WILL MONITOR PATIENT CLOSELY.
[2021-07-02 20:00] VITALS: BP 129/66
[2021-07-02] MEDS: ATORVASTATIN 10 MG TABLET PO SCH (21:31)
[2021-07-03] VITALS: BP_SYST 145; BP_SYST 156; BP_DIAS 79; BP_DIAS 81
[2021-07-03 04:00] VITALS: BP 158/87
--- NOTE | 2021-07-03 06:59 | NUR ---
RN CLOSING NOTE PATIENT IN BED HAS EYES CLOSED, EASILY AROUSED. NO CHANGES ON PATIENT'S NEUROVASCULAR STATUS. PATIENT IS A/O X 1-2. ABLE TO MAKE NEEDS KNOWN. BREATHING EVEN AND UNLABORED, TOLERATING ROOM AIR. PATIENT HAS A RAC 18 G, SALINE LOCKED. PATIENT NOT IN ANY APPARENT DISTRESS.SAFETY MEASURES MAINTAINED. ALL NEEDS MET AND ATTENDED. ALL ORDERS CARRIED OUT. WILL ENDORSE TO DAY SHIFT NURSE FOR FRANCO.
--- NOTE | 2021-07-03 07:30 | NUR ---
RN NOTE OBSERVE PATIENT IN BED, WITH IV ON RIGHT AC GAUGE 18 PATENT INFUSING WELL, ON O2 VIA NC @2PM OW SAT OF 98%, PATIENT ON TELE MONITOR, PATIENT ALERT AND ORIENTED X2 WITH FORGETFULNESS, PATIENT ON HERNANDEZ CATHETER DRAINING WELL, SEIZURE PRECAUTION. BED WHEELS LOCK, CALL LIGHT WITHIN REACH BED WHEELS LOCK, SAFETY MEASURE OBSERVED. WILL CONTINUE TO MONITOR.
[2021-07-03 08:00] VITALS: BP 140/81
[2021-07-03] MEDS: PANTOPRAZOLE 40 MG TABLET.DR PO SCH (08:23)
[2021-07-03] MEDS: METOPROLOL TARTRATE 50 MG TABLET PO SCH ×2 (08:23→21:22)
[2021-07-03] MEDS: DIVALPROEX SODIUM 250 MG TABLET.DR PO SCH ×2 (08:23→21:20)
[2021-07-03] MEDS: ASPIRIN 81 MG TAB.CHEW PO SCH (08:23)
[2021-07-03] MEDS: LEVOTHYROXINE SODIUM 25 MCG TABLET PO SCH (08:24)
[2021-07-03] MEDS: AMLODIPINE BESYLATE 5 MG TABLET PO SCH (08:24)
[2021-07-03] MEDS: CARBAMAZEPINE 200 MG TABLET PO SCH ×3 (08:24→17:21)
[2021-07-03] MEDS: hydrALAZINE HCL 50 MG TABLET PO SCH ×3 (08:24→17:20)
[2021-07-03] MEDS: LEVETIRACETAM (250 MG) 250 MG TABLET PO SCH ×2 (08:24→17:20)
[2021-07-03] MEDS: GABAPENTIN 300 MG CAPSULE PO SCH ×3 (08:24→17:20)
[2021-07-03] MEDS: ARIPIPRAZOLE 5 MG TABLET PO SCH (08:26)
[2021-07-03] MEDS: ACETAMINOPHEN 325 MG TABLET PO PRN ×2 (10:37→19:48)
[2021-07-03 12:00] VITALS: BP 127/78
[2021-07-03 13:34] LABS: BASOPHILS % (AUTO) 0.3 % (0.0-2.0); EOSINOPHILS % (AUTO) 1.1 % (0.0-6.0); HEMATOCRIT 39 % (33-45); HEMOGLOBIN 12.9 g/dL (11.5-14.8); LYMPHOCYTES # (AUTO) 2.9 K/uL (0.8-4.8); LYMPHOCYTES % (AUTO) 26.6 % (20.0-44.0); MEAN CORPUSCULAR HGB CONC 33 g/dl (31.0-36.0); MEAN CORPUSCULAR VOLUME 98 fL (82-100); MONOCYTES # (AUTO) 0.9 K/uL (0.1-1.30); MONOCYTES % (AUTO) 8.7 % (2.0-12.0); NEUTROPHILS # (AUTO) 6.9 K/uL (1.8-8.9); NEUTROPHILS % (AUTO) 63.3 % (43.0-81.0); PLATELET COUNT (AUTO) 165 K/uL (150-450); RED BLOOD CELL COUNT(AUTO) 3.96 MIL/uL (4.0-5.2); WHITE BLOOD COUNT (AUTO) 10.9 K/uL (4.3-11.0)
[2021-07-03 13:46] LABS: CALCIUM, SERUM 8.1 mg/dL (8.5-10.1); CREATININE 0.8 mg/dL (0.6-1.3); MAGNESIUM 2.3 mg/dL (1.8-2.4); PHOSPHORUS 4.2 mg/dL (2.5-4.9); POTASSIUM 3.4 mmol/L (3.5-5.1)
[2021-07-03 13:57] LABS: THYROID STIMULATING HORMONE 2.661 uIU/mL (0.358-3.74)
[2021-07-03 16:00] VITALS: BP 137/79
--- NOTE | 2021-07-03 18:47 | NUR ---
RN NOTE OBSERVE PATIENT IN BED, WITH IV ON RIGHT AC GAUGE 18 PATENT INFUSING WELL, ON O2 VIA NC @2PM OW SAT OF 98%, PATIENT ON TELE MONITOR, PATIENT ALERT AND ORIENTED X2 WITH FORGETFULNESS, PATIENT ON HERNANDEZ CATHETER DRAINING WELL, SEIZURE PRECAUTION. NO SEIZURE EPISODE DURING THE SHIFT. BED WHEELS LOCK, CALL LIGHT WITHIN REACH BED WHEELS LOCK, SAFETY MEASURE OBSERVED. WILL CONTINUE TO MONITOR. WILL ENDORSE TO NOC SHIFT.
[2021-07-03] MEDS ORDERED: POTASSIUM CHLORIDE 20 MEQ TAB.PRT.SR PO ONE (19:30)
[2021-07-03 20:00] VITALS: BP 153/77
[2021-07-03] MEDS: ATORVASTATIN 10 MG TABLET PO SCH (21:21)
[2021-07-03] MEDS: ENOXAPARIN SODIUM 40 MG/0.4 ML DISP.SYRIN SQ SCH (21:31)
[2021-07-04] VITALS: BP 156/81
[2021-07-04 04:00] VITALS: BP 149/64
[2021-07-04 06:39] LABS: BASOPHILS # (AUTO) 0.1 K/uL (0.0-0.2); BASOPHILS % (AUTO) 0.6 % (0.0-2.0); EOSINOPHILS % (AUTO) 1.6 % (0.0-6.0); HEMATOCRIT 38 % (33-45); LYMPHOCYTES # (AUTO) 2.9 K/uL (0.8-4.8); LYMPHOCYTES % (AUTO) 30.4 % (20.0-44.0); MEAN CORPUSCULAR HGB CONC 34 g/dl (31.0-36.0); MEAN CORPUSCULAR VOLUME 98 fL (82-100); MONOCYTES # (AUTO) 0.6 K/uL (0.1-1.30); MONOCYTES % (AUTO) 6.7 % (2.0-12.0); NEUTROPHILS # (AUTO) 5.8 K/uL (1.8-8.9); NEUTROPHILS % (AUTO) 60.7 % (43.0-81.0); PLATELET COUNT (AUTO) 169 K/uL (150-450); WHITE BLOOD COUNT (AUTO) 9.6 K/uL (4.3-11.0)
[2021-07-04 06:48] LABS: CALCIUM, SERUM 8.2 mg/dL (8.5-10.1); CREATININE 0.7 mg/dL (0.6-1.3); POTASSIUM 3.8 mmol/L (3.5-5.1)
--- NOTE | 2021-07-04 07:20 | NUR ---
RN CLOSING NOTES PT REMAINS IN BED, ALL NEEDS ATTENDED. DENIES PAIN. PT CLEANED AND HYGIENE PRODUCTS PROVIDED. AT THIS TIME, NO S/S OF DISTRESS NOTED. IN STABLE CONDITION, ALL ORDERS CARRIED OUT. SAFETY MEASURES IN PLACE. HOB ELEVATED. SIDE RAILS UP X2. BED LOCKED IN LOWEST POSITION. ENDORSED CARE TO DAY SHIFT RN FOR CONTINUATION OF CARE Addendum: 07/04/21 at 0749 by MARIA ISABEL TOURE RN NO EVIDENCE OF SEIZURES NOTED
--- NOTE | 2021-07-04 07:31 | NUR ---
RN OPENING NOTE Patient is asleep, arousable to stimuli, no respiratory distress, no SOB noted. Safety precautions implemented, bed locked in lowest position, call light within reach.
[2021-07-04 08:00] VITALS: BP 139/79
[2021-07-04] MEDS: LEVETIRACETAM (250 MG) 250 MG TABLET PO SCH ×2 (08:42→16:03)
[2021-07-04] MEDS: CARBAMAZEPINE 200 MG TABLET PO SCH ×3 (08:43→16:02)
[2021-07-04] MEDS: PANTOPRAZOLE 40 MG TABLET.DR PO SCH (08:43)
[2021-07-04] MEDS: LEVOTHYROXINE SODIUM 25 MCG TABLET PO SCH (08:43)
[2021-07-04] MEDS: ASPIRIN 81 MG TAB.CHEW PO SCH (08:43)
[2021-07-04] MEDS: GABAPENTIN 300 MG CAPSULE PO SCH ×3 (08:44→16:02)
[2021-07-04] MEDS: ARIPIPRAZOLE 5 MG TABLET PO SCH (08:44)
[2021-07-04] MEDS: DIVALPROEX SODIUM 250 MG TABLET.DR PO SCH (08:44)
[2021-07-04] MEDS: hydrALAZINE HCL 50 MG TABLET PO SCH ×3 (08:46→16:02)
[2021-07-04] MEDS: METOPROLOL TARTRATE 50 MG TABLET PO SCH (08:46)
[2021-07-04] MEDS: AMLODIPINE BESYLATE 5 MG TABLET PO SCH (08:47)
[2021-07-04] MEDS ORDERED: POLYETHYLENE GLYCOL 3350 17 GM POWD.PACK PO PRN (10:30)
[2021-07-04 12:00] VITALS: BP 130/70
[2021-07-04] MEDS ORDERED: MAGNESIUM CITRATE 296 ML BOTTLE PO ONE (13:30)
[2021-07-04 16:00] VITALS: BP 130/70
[2021-07-04 16:02] VITALS: BP 130/70
--- NOTE | 2021-07-04 18:00 | NUR ---
RN D/C NOTE Pt D/C back to Assisted Living, A/O X 2, no respiratory distress, no SOB. Left in stable condition, IV removed, F/C removed. Pertinent info sent with EMT. Called [facility] gave report to [facility].
== END 2021-07-04 18:05 | DRG 53 ==
LOC: ER 17:21 → TRANSITION 07-02 01:31 → TELE-TD 07-02 15:03 → TELE1 07-02 16:44 → MEDSG1 07-04 08:16
PROVIDERS: ADMIT Nurse Practitioner Acute Care; ATTEND Nurse Practitioner Family
DX: G40.909 Epilepsy, unspecified, not intractable, without status epilepticus (principal); E44.1 Mild protein-calorie malnutrition; F03.90 Unspecified dementia, unspecified severity, without behavioral disturbance, psychotic disturbance, mood disturbance, and anxiety; R47.01 Aphasia; E03.9 Hypothyroidism, unspecified; E66.01 Morbid (severe) obesity due to excess calories; N32.81 Overactive bladder; I16.0 Hypertensive urgency; Z20.822 Contact with and (suspected) exposure to COVID-19; I10 Essential (primary) hypertension; E78.5 Hyperlipidemia, unspecified; F32.9 Major depressive disorder, single episode, unspecified; Z88.5 Allergy status to narcotic agent; Z88.8 Allergy status to other drugs, medicaments and biological substances; Z79.899 Other long term (current) drug therapy; K21.9 Gastro-esophageal reflux disease without esophagitis; F41.9 Anxiety disorder, unspecified; J45.909 Unspecified asthma, uncomplicated; K59.00 Constipation, unspecified; Z79.890 Hormone replacement therapy; Z68.41 Body mass index [BMI] 40.0-44.9, adult; R29.704 NIHSS score 4
CPT/HCPCS: 36415; 36600; 70450-TC; 70496-TC; 70498-TC; 71045-TC; 80048-TC; 80061-TC; 80076-TC; 82140-TC; 83735-TC; 83880; 84100-TC; 84443-TC; 84484-TC; 85025-TC; 85730-TC; 87081-TC; 92526; 92611-TC; 97110-TC; 97112-TC; 97116-TC; 97530-TC; A4217; C9803; G0378; G0480; J0360; J1650; J1940; J1953; J2060; J2405; J3490; J7030; J7040; J7050; Q9967; U0003

== ENCOUNTER 2021-07-08 20:08 | Emergency (ER) | payer MEDICAID ==
[~2021-07-08] VITALS: Ht 170.2 cm; Wt 104.3 kg
[~2021-07-08 20:08] MED LIST: AMLO5TAB4 PO; ARIP5TAB10 PO; ATOR10TA PO; BACL20TA PO; CARB200T PO; DIVA-78 PO; DULO20CA PO; ESCI10TA PO; ESOM40CA PO; FURO-144 PO; GABA-536 PO; HYDR-4077 PO; LEVE1000 PO; METO50TA16 PO; POLY17PO4 PO; SOLI5TAB2 PO; TRAZ-257 PO
--- NOTE | 2021-07-08 20:25 | NUR ---
PATIENT BIBRA WITH C/O RIGHT SIDED ABDOMINAL PAIN.PT STATED, -N/V/D. PT RATES PAIN 10/10. PATIENT IS A/O X 4, RR EVEN AND UNLABORED, NO SOB NOTED. PATIENT CONNECTED TO CARDIAC AND POX MONITOR.
--- NOTE | 2021-07-08 20:30 | NUR ---
PT PROVIDED WITH WARM BLANKETS
[2021-07-08] MEDS ORDERED: IV NS 0.9% 250 ML IV ONE (21:04)
[2021-07-08] MEDS ORDERED: IOHEXOL-300 100 ML VIAL IV ONE (21:04)
--- NOTE | 2021-07-08 21:14 | NUR ---
US AT BEDSIDE
[2021-07-08 21:29] LABS: BILIRUBIN,URINE NEGATIVE (NEGATIVE); COLOR,URINE YELLOW (YELLOW); LEUKOCYTE ESTERASE ,URINE NEGATIVE (NEGATIVE); NITRITE, URINE NEGATIVE (NEGATIVE); PH,URINE 7.5 (5.0-8.0); PROTEIN,URINE NEGATIVE (NEGATIVE); UGLUCOSE NEGATIVE (NEGATIVE); UROBILINOGEN,URINE 0.2 EU/dL (0.2)
[2021-07-08 21:31] LABS: BASOPHILS % (AUTO) 0.4 % (0.0-2.0); EOSINOPHILS % (AUTO) 0.9 % (0.0-6.0); HEMATOCRIT 38 % (33-45); HEMOGLOBIN 12.6 g/dL (11.5-14.8); LYMPHOCYTES # (AUTO) 3.3 K/uL (0.8-4.8); MEAN CORPUSCULAR HGB CONC 34 g/dl (31.0-36.0); MEAN CORPUSCULAR VOLUME 99 fL (82-100); NEUTROPHILS # (AUTO) 6.9 K/uL (1.8-8.9); NEUTROPHILS % (AUTO) 60.7 % (43.0-81.0); PLATELET COUNT (AUTO) 162 K/uL (150-450); RED BLOOD CELL COUNT(AUTO) 3.78 MIL/uL (4.0-5.2); WHITE BLOOD COUNT (AUTO) 11.4 K/uL (4.3-11.0)
--- NOTE | 2021-07-08 21:41 | NUR ---
TAKEN TO RADIOLOGY
[2021-07-08 21:56] LABS: BAND % (MANUAL) 1 % (0.0-5.0); LYMPHOCYTES % (MANUAL) 32 % (16-48); MONOCYTES % (MANUAL) 7 % (0-11.0); NEUTROPHILS % (MANUAL) 60 (42-76)
[2021-07-08 22:08] LABS: CALCIUM, SERUM 7.8 mg/dL (8.5-10.1); POTASSIUM 4.3 mmol/L (3.5-5.1)
--- NOTE | 2021-07-08 22:08 | NUR ---
CALLED [facility] TO HAVE IMAGE READ
--- NOTE | 2021-07-08 22:11 | NUR ---
CALLED LAB TO F/U ON CHEM RESULTS
[2021-07-08 22:12] LABS: ALBUMIN 3.2 g/dL (3.4-5.0); BILIRUBIN,DIRECT 0.1 mg/dL (0.0-0.2); BILIRUBIN,TOTAL 0.2 mg/dL (0.2-1.0); TOTAL PROTEIN, SERUM 7.1 g/dL (6.4-8.2)
[2021-07-08] MEDS ORDERED: POLY17PO4 PO (22:29)
--- NOTE | 2021-07-08 22:32 | NUR ---
Patient discharged to home in stable condition. Written and verbal after care instructions given. Patient verbalizes understanding of instruction. IV removed. Catheter intact and site benign. Pressure and 4x4 applied to site. No bleeding noted. Ambulance transport called
--- NOTE | 2021-07-08 22:39 | NUR ---
CALLED [facility] [id number]
--- NOTE | 2021-07-08 23:25 | NUR ---
JENIFER [facility]ATING [facility] CALLED GIVEN UPDATE ON PATIENT
--- NOTE | 2021-07-09 01:02 | NUR ---
CALLED [facility], NEW ETA 35MIN
--- NOTE | 2021-07-09 02:43 | NUR ---
GAVE REPORT TO EMS
[2021-07-09 03:15] VITALS: BP 147/79
== END 2021-07-09 02:43 ==
LOC: ER 20:13
DX: K59.00 Constipation, unspecified (principal); R11.10 Vomiting, unspecified; R10.31 Right lower quadrant pain; G40.909 Epilepsy, unspecified, not intractable, without status epilepticus; I10 Essential (primary) hypertension; F20.9 Schizophrenia, unspecified; F32.9 Major depressive disorder, single episode, unspecified; F03.90 Unspecified dementia, unspecified severity, without behavioral disturbance, psychotic disturbance, mood disturbance, and anxiety; E03.9 Hypothyroidism, unspecified; Z88.5 Allergy status to narcotic agent; Z88.6 Allergy status to analgesic agent
CPT/HCPCS: 36415; 74177; 76705; 80048; 80076; 81003; 83690; 85007; 85025; 87086; 99285; J7050; Q9967